=== PATIENT | female | born 1955 | race Caucasian/White ===

== ENCOUNTER 2022-09-25 08:17 | Outpatient (REF) | payer MEDICARE, SELFPAY | END 2022-09-25 08:18 | disposition home or self-care (01) | LOC: HO.SH 08:17 | PROVIDERS: Visit Provider Physician Assistant | DX: Z01.118 Encounter for examination of ears and hearing with other abnormal findings (principal); H90.3 Sensorineural hearing loss, bilateral | CPT/HCPCS: 92557 ==

== ENCOUNTER 2024-06-23 15:56 | Outpatient (AMB) | payer MEDICARE, OTHER, SELFPAY ==
--- NOTE | 2024-06-23 15:58 | AM.OFFWIN_ITS ---
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 Patient Tobacco Use Status: Never used Tobacco Allergies Sulfa (Sulfonamide Antibiotics) Adverse Reaction (Mild, Verified 06/23/24 16:01) Rash Do you need a note to return to daycare/school/sports/work: No HPI HPI Comments 2 History of Present Illness0 Details 68 y/o Female patient who [facility] with c/o left middle finger Nail infection x 1 week. She remembers clipping her nails before the Pain and redness started. She has been using OTC Topical Abx with minimal relief. [facility] Medical History (Updated 06/23/24 @ 16:20 by Precious Perera NP) Paronychia of finger Social History Patient Tobacco Use Status: Never used Tobacco Review of Systems Const All systems reviewed & are unremarkable except as noted in HPI and below Physical Exam Vital Signs: Last Vital Signs Temp 98.4 F 06/23/24 16:00 Pulse 69 06/23/24 16:00 BP 110/70 06/23/24 16:00 Pulse Ox 97 06/23/24 16:00 Oxygen Delivery Method Room Air 06/23/24 16:00 Const General: no acute distress Orientation/consciousness: patient oriented x3 Neuro General: patient oriented x3, gait normal and moves all extremities Extrem Right upper extremity: normal to inspection and full ROM Left upper extremity: hand Details: normal capillary refill, tenderness Location: of the 3rd digit Location: at the nailbed and involving the fingernail, normal ROM of fingers, warmth and swelling Hand/finger images: 2 1. Erythematous, swelling and TTP left middle finger - Hang Nail. Psych Speech and movement: Normal speech and movement present Assessment & Plan Assessment & Plan (1) Paronychia of finger: Code(s): L03.019 - Cellulitis of unspecified finger Qualifiers: Laterality: left Qualified Code(s): L03.012 - Cellulitis of left finger Plan: Ordered Keflex 500 mg BID for 5 days. Soak Finger in Warm water with Epsom salts. Saok 15-20 minutes, 3-4 times a day. Apply a thin layer of an [id number] antibiotic ointment (like Neosporin or triple antibiotic). Medications: New 2 cephalexin 500 mg PO BID 7 days 14 caps 0RF L03.012 - Cellulitis of left finger Coding Level of Care Code Est Pt Level 4 (92147) Diagnoses Paronychia of finger of left hand L03.012 Laterality: left Time Spent (min) 20
--- OUTSIDE RECORDS SUMMARY | 2024-06-23 15:58 | XMS_ITS | Clinical Summary ---
Author Organization [facility] Address [address] [place] [address] Care Team Providers Care Language Interpreter Name Role Phone Hannah Kemp Primary Care Provider [phone] Allergies Active Allergy Reactions Criticality Noted Date Comments Sulfa (Sulfonamide Antibiotics) Rash 06/04 Medications cholecalciferol (VITAMIN D3) 2,000 unit tablet Take 2,000 Units by mouth daily. Active citalopram (CeleXA) 40 mg tablet SMARTSI Tablet(s) By Mouth Daily Active dabigatran (PRADAXA) 150 mg capsule Take 150 mg by mouth 2 times daily. 01/03/2023 Active diltiazem CD (CARDIZEM CD) 360 mg 24 hr capsule SMARTSI Capsule(s) By Mouth Daily Active flecainide (TAMBOCOR) 50 mg tablet Take 50 mg by mouth 2 times daily. 11/08/2023 Active hydroCHLOROthiaz hilary (HYDRODIURIL) 25 mg tablet SMARTSI Tablet(s) By Mouth Daily 11/15/2023 Active hydrOXYzine HCL (ATARAX) 25 mg tablet SMARTSI- 4 Tablet(s) By Mouth Every Night PRN Active latanoprost (XALATAN) 0.005% ophthalmic solution Place 1 Drop into both eyes every morning. Active levothyroxine (SYNTHROID, LEVOTHROID) 150 mcg tablet Active LORazepam (ATIVAN) 0.5 mg tablet SMARTSI Tablet(s) By Mouth Daily PRN 10/12/2023 Active multivitamin (THERAGRAN) tablet Take 1 tablet by mouth daily. Active omeprazole 20 mg tablet,delayed release (DR/EC) Take 20 mg by mouth daily. Active Social History Tobacco Use Types Packs/Day Years Used Date Smoking Tobacco: Never Smokeless Tobacco: Never Tobacco Cessation:Counseling Given: Not Answered Alcohol Use Standard Drinks/Week Comments Not Currently 0 (1 standard drink = 0.6 oz pur e alcohol) Quit last year Comments Unknown Sex and Gender Information Value Date Recorded Sex Assigned at Female 12/26/2023 10:17 AM EDT Legal Sex Female 12:10 PM EDT Gender Identity Female 12/26/2023 10:17 AM EDT Sexual Orientation Straight 12/26/2023 10 :17 AM EDT Last Filed Vital Signs Vital Sign Reading Time Taken Comments Blood Pressure 116/78 01/02/2024 8:46 AM EDT Pulse 76 01/02/2024 8:46 AM EDT Temperature - - Respiratory Rate 16 01/02/2024 8:46 AM EDT Oxygen Saturation 97% 01/02/2024 8:46 AM EDT Inhaled Oxygen Concentration - - Weight 97 kg (213 lb 13.5 oz) 01/02/2024 8:46 AM EDT Height 154.9 cm (5' 1 ) 01/02/2024 8:46 AM EDT Body Mass Index 40.41 01/02/2024 8:46 AM EDT Plan of Treatment Health Maintenance Due Date Last Done Comments Cologuard 1953 Colon Cancer Screening 1955 Colonoscopy 1953 FOBT / Fit Test 1953 Hepatitis C Screening 1953 Sigmoidoscopy 1953 Medicare AWV 1954 Mammogram 1993 Osteoporosis Screening 10/01/2003 Zoster Vaccines (3 of 3) 12/07/2023 10/12/2023, 06/03 Alcohol/Substance Use Screening 03/05/2024 Depression Screening and Follow-Up 03/05/2024 Health Care Proxy Review 03/05/2024 Social Drivers of Health Annual Screening 03/05/2024 COVID-19 Vaccine ( season) 2024 11/21/2023, 12/04/2022, 12/12/2021, Additional history exists DTaP,Tdap,and Td Vaccines (3 - Td or Tdap) 05/15/2032 05/15/2022, 02/20/2012, 12/09/2001 Pneumococcal Vaccine: 50+ Years Completed 08/16/2020, 11/11/2018, 09/18/2015 RSV Vaccine (60+ years old and patients) Completed 01/31/2023 Influenza Vaccine Completed 11/21/2023, , 12/12/2021, Additional history exists Hepatitis B Vaccines Aged Out No long er eligible based on patient's age to complete this topic Insurance MEDICARE Care Teams Language Interpreter Relationship Specialty Start Date End Date Hannah Kemp [address] [place] [id number] PCP - General Family Medicine 10/29/23
--- OUTSIDE RECORDS SUMMARY | 2024-06-23 15:58 | XMS_ITS | Data Portability ---
Author Organization [facility] Pain Managem jeanmarie PAIN OFFICE Address [address] [facility] [address] [place] [address] Care Team Providers Care Manager Social Media Name Role Phone CORBIN RYDER Primary Care Provider Assessment Encounter Date Assessment Date Assessment LastModified by Organization Details LastModified Time 05/24/2023 05/24/2023 Marlen Morales is a 67? ? ?year old woman with low back pain, left sided. On exam ,she has tenderness in the left sacroiliac joint with a positive Karan's test. X-ray Lumbar spine shows mild degenerative changes in her sacroiliac joints. Mild degenerative change in her discs with facet arthropathy . She is here for a trial of left sacroiliac joint injection under fluoroscopic guidance . The risks and benefits of the procedure? ? ? were discussed in detail. She wishes to proceed. She is on Pradaxa. She can restart the medication tomorrow. She can follow up as needed. [email or web address] Not available 05/24/2023 15:15:57 09/25/2023 09/25/2023 Marlen Morales is a 67? ? ?year old woman with low back pain, left sided. On exam ,she has tenderness in the left sacroiliac joint with a positive Karan's test. X-ray Lumbar spine shows mild degenerative changes in her sacroiliac joints. Mild degenerative change in her discs with facet arthropathy . She is here for a trial of bilateral sacroiliac joint injections under fluoroscopic guidance . The risks and benefits of the procedure? ? ? were discussed in detail. She wishes to proceed. She is on Pradaxa. She can restart the medication tomorrow. She is having low back pain radiating into both buttock regions with weakness in her legs . She has had multiple falls. I will order a MRI Lumbar spine. I will call her with the results. [email or web address] Not available 09/25/2023 16:23:35 01/08/2024 01/08/2024 Marlen Morales is a 68? ? ?year old woman with low back pain radiating occasionally into the right lower extremity. On exam ,she has tenderness in the Right lower lumbar region with a positive facet loading test. X-ray Lumbar spine shows mild degenerative changes in her sacroiliac joints. Mild degenerative change in her discs with facet arthropathy . She is here for a trial of Right lumbar facet joint injection under fluoroscopic guidance . The risks and benefits of the procedure? ? ? were discussed in detail. She wishes to proceed. She is on Pradaxa. She can restart tomorrow. She will follow up as needed. [email or web address] Not available 01/08/2024 16:26:14 04/22/2024 04/22/2024 Marlen Morales is a 68? ? ?year old woman with low back pain radiating occasionally into the right lower extremity. On exam ,she has tenderness in the Right lower lumbar region with a positive facet loading test. X-ray Lumbar spine shows mild degenerative changes in her sacroiliac joints. Mild degenerative change in her discs with facet arthropathy . She is here for a trial of Right lumbar facet joint injection under fluoroscopic guidance . The risks and benefits of the procedure? ? ? were discussed in detail. She wishes to proceed. She is on eliquis. She can restart tomorrow. She will follow up in eight weeks. If she has good pain benefit. She is a candidate for RFA [email or web address] Not available 04/22/2024 11:41:53 06/23/2024 06/23/2024 Marlen Morales is a 68? ? ?year old woman with low back pain radiating occasionally into the right lower extremity. On exam ,she has tenderness in the Right lower lumbar region with a positive facet loading test. X-ray Lumbar spine shows mild degenerative changes in her sacroiliac joints. Mild degenerative change in her discs with facet arthropathy . I recommend a trial of Right radiofrequency ablation of right lumbar facet joints L4-5 and L5-S1 levels under fluoroscopic guidance . The risks and benefits of the procedure? ? ? were discussed in detail. She wishes to proceed. An appointment has been made. She is on eliquis. She was given instructions to stop it three days prior to the procedure. [email or web address] Not available 06/23/2024 09:59:48 Plan of Treatment Reminders Order Date Submit Date Provider Last Modified By Organization Details Last Modified Time Details Appointments RETURN 2024 09:00A M Sahara cerda MD Not available Not available Not available Lumbar Radiofreq uency 2024 01:00P M Sahara cerda MD Not available Not available Not available Lab None recorded. Referral None recorded. Procedures None recorded. Surgeries None recorded. Imaging MRI, lumbar spine, w/o contrast 2023 024 [facility] ([facility]), [address] [facility], [place], [address], 10/08/2023 12:51:59 Medication Orders None recorded. Patient TargetsNo targets recorded. Patient Instructions Encounter Date Encounter Id Patient Instructions Last Modified By Organization Details Last Modified Time 05/24/2023 [id number] She was advised against bed rest lasting longer than four days and to continue activities as tolerated. [email or web address] Not available 05/24/2023 15:15:15 09/25/2023 [id number] She was advised against bed rest lasting longer than four days and to continue activities as tolerated. [email or web address] Not available 09/25/2023 16:21:05 01/08/2024 [id number] She was advised against bed rest lasting longer than four days and to continue activities as tolerated. [email or web address] Not available 01/08/2024 16:24:45 04/22/2024 [id number] She was advised against bed rest lasting longer than four days and to continue activities as tolerated. [email or web address] Not available 04/22/2024 11:38:42 06/23/2024 [id number] She was advised against bed rest lasting longer than four days and to continue activities as tolerated. [email or web address] Not available 06/23/2024 09:58:03 Reason for Referral None Reported. Results Created Date Observation Date Name Description Value Unit Range Abnormal Flag Note LastModifiedBy Organization Detail LastModifiedTime 10/08/192024 MRI, lumba r spine , w/o contr ast [facility] [place] [facility] Access ion Number : [id number] Jannet goode Name: Jada Morales Record Number : [id number] Date of : 1955 Date of Exam: 2023 Referr ing Physic venkatesh: Aaliyah tylern, [facility] [address] [place] [address] Exam: MR Lumbar Spine (C-) CPT 41330 Room Descri ption: Mckinney GE Pion 3T MR Lumbar Spine (C-) CPT 86733 INDICA TION: Radicu lopath y, lumbar region Radicu lopath y, lumbar region TECHNI QUE: MRI of the lumbar spine was perfor med withou t intrav enous contra st utiliz ing 3-D sagitt al T2 CUBE with axial reform ats, sagitt al T1, and sagitt al STIR sequen carlos. COMPAR BRADLEY: None. FINDIN GS: NUMBER ING: The study assume s 5 non-ri b-bear ing lumbar type verteb ral bodies . ALIGNM ENT, VERTEB LUIS MANUEL, MARROW , AND DISCS: There is subtle retrol isthes is of L2 on L3 and L3 on L4 and subtle grade 1 flory listhe sis of L4 on L5. Alignm ent is otherw ise mainta ined. Verteb ral body height s are preser junior. There are Modic type II signal change s at the L5-S1 level. There are combin ed Modic type I and type II signal change s at L2-L3. There is diffus e disc desicc ation with mild multil evel loss of interv ertebr al disc height which is most promin ent at L2-L3. CONUS: The conus is normal in signal and contou r, with normal level of termin ation at L1-L2. PARASP INAL TISSUE S: Atroph y of the instructor extension work ior parasp inal muscul ature. A left renal cyst is noted on the locali zer images . DETAIL ED FINDIN GS BY LEVEL: T12-L1 : No signif icant canal stenos is or neural forami nal narrow ing. L1-L2: No signif icant canal stenos is or neural forami nal narrow ing. L2-L3: Minima l disc bulge with a small right parace ntral protru gloria and annula r fissur e. Mild right- sided spinal canal narrow ing. Minima l left and mild right neural forami nal narrow ing. L3-L4: Disc bulge, ligame ntum flavum thicke rome, and facet arthro noah. Minima l spinal canal narrow ing. Minima l bilate ral neural forami nal narrow ing. L4-L5: Diffus e disc bulge and facet arthro noah. No signif icant canal stenos is. Minima l bilate ral neural forami nal narrow ing. L5-S1: Facet arthro noah, left greate r than right. Minima l disc bulge. No signif icant canal stenos is. Mild left and minima l right neural forami nal narrow ing. IMPRES GLORIA: Multil evel degene rative change s of the lumbar spine as above. No defini te eviden ce for nerve root imping ement. Electr onical ly Signed By: Nena angeles MD [facility] ([facility]) [address] [place], [address], 10/08/2023 16:23:07 Result Notes None recorded. Problems Name Problem SNOMED Code Status Onset Date Resolution Date Notes Provider Name and Address Organization Details Recorded Time Lumbar radiculopathy 175086314 Active Mikayla cooper, [place] - [facility] 3 11:06:07 Inflammation of sacroiliac joint 64211599 Active Sahara cerda MD [address] [facility] , [facility] [address], [place], [address], [facility] - Pain Management 3 11:33:40 Problem Notes None recorded. Procedures Surgical History Date Name Laterality Status Provider Name and Address Organization Details Recorded Time 025 Fluoroscopic Guided Lumbar Facet Steroid Injections of levels completed Sahara Major MD [address] [facility] [address], [place], [address], [facility] - Pain Management 04/22/2024 11:40:57 024 Fluoroscopic Guided Lumbar Facet Steroid Injections of levels completed Sahara Major MD [address] , [address], [place], [address], [place] - [facility] 01/08/2024 16:24:11 024 Sacroiliac Joint Steroid Injections, using Fluoroscopy completed Sahara Major MD [address] , [address], [place], [address], [place] - [facility] 09/25/2023 16:22:02 024 Sacroiliac Joint Steroid Injections, using Fluoroscopy completed Sahara Major MD [address] , [address], [place], [address], [place] - [facility] 05/24/2023 15:14:07 024 Sacroiliac Joint Steroid Injections, using Fluoroscopy completed Sahara Major MD [address] , [address], [place], [address], [place] - [facility] 04/18/2023 10:42:30 repair of musculotendinous cuff of shoulder completed Mikayla Montejo [place] - [facility] 02/22/2023 11:13:03 Knee Surgery completed Mikayla Montejo [place] - [facility] 02/22/2023 11:13:19 Breast reduction completed Mikayla Montejo [place] - [facility] 02/22/2023 11:13:34 Imaging Results Imaging Date Name Status LastModified by Organiz ation Details LastModified Time 10/05/2023 MRI, lumbar spine, w/o contrast completed [facility] ([facility]) [address] [place], [address], 10/08/2023 16:23:07 Procedure Notes None recorded. Medical Equipment None Reported. Allergies Allergen ID Allergen Name Allergen Category Reaction Reaction Severity Criticality Documentation Date Start Date Code Code System Note Provider Name and Address Organization Details Recorded Time Substance with sulfonami de structure and antibacte rial mechanism of action (substanc e) medicatio n rash mild unabletoasse ss 02/22/2023 57018 0623 SNOMED Mikayla Pellegrin o null, [place] - [facility] 10:47:30 Medications Name Sig Start Date Stop Date Status Note LastModified by Organization Details LastModified Time cyclobenzap rine 10 mg tablet TAKE 1 TABLET BY MOUTH THREE TIMES A DAY 02/22 completed Not Available Not Available Not Available latanoprost 0.005 % eye drops LOCATION: BOTH EYES. ONE DROP IN BOTH EYES AT BEDTIME active Not Available Not Available No t Available levothyroxi ne 137 mcg tablet TAKE 1 TABLET BY MOUTH EVERY DAY 06/23 completed Not Available Not Available Not Available citalopram 40 mg tablet TAKE 1 TABLET BY MOUTH EVERY DAY active Not Available Not Available No t Available diltiazem CD 240 mg capsule,ext ended release 24 hr TAKE 1 CAPSULE BY MOUTH EVERY DAY 02/22 completed Not Available Not Available Not Available prednisone 20 mg tablet TAKE 2 TABLETS BY MOUTH EVERY DAY FOR 5 DAYS 12/30 completed Not Available Not Available Not Available diltiazem CD 360 mg capsule,ext ended release 24 hr TAKE 1 CAPSULE BY MOUTH EVERY DAY active Not Available Not Available No t Available hydroxyzine HCl 50 mg tablet TAKE 1-2 TABS AT BEDTIME NEEDED FOR INSOMNIA. MAX 100MG/DOS E. active Not Available Not Available No t Available triamcinolo ne acetonide 0.1 % topical cream APPLY THIN COAT TO AFFECTED AREA TWICE A DAY active Not Available Not Available No t Available clobetasol 0.05 % topical gel APPLY TO AFFECTED AREA TWICE A DAY active Not Available Not Available No t Available lorazepam 0.5 mg tablet TAKE 1 TABLET EVERY DAY BY ORAL ROUTE NEEDED. active Not Available Not Available No t Available benzonatate 100 mg capsule TAKE 1 CAPSULE BY MOUTH 3 TIMES A DAY FOR 7 DAYS NEEDED FOR COUGH AND CONGESTIO N 06/23 completed Not Available Not Available Not Available oseltamivir 75 mg capsule TAKE 1 CAPSULE BY MOUTH 2 TIMES A DAY FOR 4 DAYS 06/23 completed Not Available Not Available Not Available levothyroxi ne 125 mcg tablet TAKE 1 TABLET BY MOUTH EVERY DAY 02/22 completed Not Available Not Available Not Available levothyroxi ne 150 mcg tablet TAKE 1 TABLET BY MOUTH EVERY DAY active Not Available Not Available No t Available flecainide 50 mg tablet TAKE 1 TABLET BY MOUTH TWICE A DAY active Not Available Not Available No t Available gabapentin 300 mg capsule TAKE 1 TO 3 CAPS BY MOUTH EVERY DAY AT BEDTIME active Not Available Not Available No t Available omeprazole 20 mg capsule,del ayed release TAKE 1 CAPSULE BY MOUTH EVERY DAY IN THE MORNING 30 MINUTES BEFORE BREAKFAST active Not Available Not Available No t Available hydroxyzine HCl 25 mg tablet TAKE 1 TO 4 TABLETS BY MOUTH AT BEDTIME NEEDED FOR INSOMNIA. 06/23 completed Not Available Not Available Not Available hydrochloro thiazide 25 mg tablet TAKE 1 TABLET BY MOUTH EVERY DAY active Not Available Not Available No t Available methylpredn isolone 4 mg tablets in a dose pack TAKE DIRECTED PER PACKAGE FOR 6 DAYS 02/22 completed Not Available Not Available Not Available albuterol sulfate HFA 90 mcg/actuati on aerosol inhaler INHALE 2 PUFFS EVERY 4 HOURS NEEDED FOR WHEEZING/ SHORTNESS OF BREATH active Not Available Not Available No t Available diltiazem 30 mg tablet TAKE 1 TABLET BY MOUTH DAILY NEEDED FOR OTHER (TACHYCAR CHAMP). active Not Available Not Available No t Available naproxen 500 mg tablet TAKE 1 TABLET BY MOUTH TWICE A DAY FOR 5 DAYS BEGINNING THE AFTERNOON /EVENING YOU GET HOME FROM SURGERY. TAKE WITH FOOD, STOP IF STOMACH DISCOMFOR T. 02/22 completed Not Available Not Available Not Available oxycodone 5 mg tablet TAKE 1-2 TABLETS BY MOUTH EVERY 6 HOURS NEEDED FOR 3 DAYS. 06/23 completed Not Available Not Available Not Available chlorhexidi ne gluconate 0.12 % mouthwash USE 15 ML IN THE MOUTH OR THROAT DIRECTED TWICE A DAY active Not Available Not Available No t Available Pradaxa 150 mg capsule TAKE 1 CAPSULE BY MOUTH TWICE A DAY 04/22 completed Not Available Not Available Not Available Xarelto 20 mg tablet TAKE 1 TABLET BY MOUTH EVERY DAY 04/18 completed Not Available Not Available Not Available Eliquis 5 mg tablet TAKE 1 TABLET BY MOUTH TWICE A DAY active Not Available Not Available No t Available Zepbound 5 mg/0.5 mL subcutaneou s pen injector INJECT 5 MG SUBCUTANE OUSLY WEEKLY FOR 28 DAYS active Not Available Not Available No t Available Zepbound 2.5 mg/0.5 mL subcutaneou s pen injector INJECT 1 PEN (2.5 MG) SUBCUTANE OUSLY ONCE WEEKLY FOR 28 DAYS 06/23 completed Not Available Not Available Not Available Vitals Date Recorded Body height Heart rate Oxygen saturation Oxygen saturation in Arterial blood by Pulse oximetry Pain severity - 0-10 verbal numeric rating [Score] - Reported Systolic blood pressure Diastolic blood pressure Provider Name and Address Organization Details Last Updated DateTime 4 154.94 cm 61 /min 96 % 96 % 3 130 mm[Hg] 73 mm[Hg] Paola Bernard PA - [facility] 4 08:36:59 Date Recorded Body height Heart rate Oxygen saturation Oxygen saturation in Arterial blood by Pulse oximetry Systolic blood pressure Diastolic blood pressure Provider Name and Address Organization Details Last Updated DateTime 4 154.94 cm 67 /min 98 % 98 % 127 mm[Hg] 71 mm[Hg] Isa Lowe [place] - [facility] 4 10:04:51 Date Recorded Body height Heart rate Oxygen saturation Oxygen saturation in Arterial blood by Pulse oximetry Systolic blood pressure Diastolic blood pressure Provider Name and Address Organization Details Last Updated DateTime 4 154.94 cm 73 /min 96 % 96 % 132 mm[Hg] 75 mm[Hg] Isa Lowe PA - [facility] 4 09:51:27 Date Recorded Body height Heart rate Oxygen saturation Oxygen saturation in Arterial blood by Pulse oximetry Systolic blood pressure Diastolic blood pressure Provider Name and Address Organization Details Last Updated DateTime 5 154.94 cm 68 /min 96 % 96 % 127 mm[Hg] 61 mm[Hg] Isa Lowe PA - Pain [facility] 5 10:43:52 Date Recorded Body height Heart rate Oxygen saturation Oxygen saturation in Arterial blood by Pulse oximetry Pain severity - 0-10 verbal numeric rating [Score] - Reported Body mass index (BMI) Body weight Systolic blood pressure Diastolic blood pressure Provider Name and Address Organization Details Last Updated DateTime 5 154.94 cm 65 /min 95 % 95 % 5 38.9 kg/m2 61335.0 3 g 124 mm[Hg] 67 mm[Hg] Sahara cerda MD [address] [facility] , [address], [place], [address], [place] - [facility] 5 09:01:13 Social History Question Answer Notes LastModified by Organizat ion Details LastModified Time Tobacco Smoking Status Never Smoker Mikayla cooper, [place] - [facility] 02/22/2023 11:08:52 What Is Your Level Of Alcohol Consumption? None Information not available 02/22/2023 Are You Blind Or Do You Have Difficulty Seeing? 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 Campbell Flores Information not available 02/22/2023 Are You Currently Employed? No Retired [employer] Information not available 02/22/2023 Are You Deaf Or Do You Have Serious Difficulty Hearing? Yes Hearing Aids Both Ears Information not available 02/22/2023 What Is The Highest Grade Or Level Of School You Have Completed Or The Highest Degree You Have Received? 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 Information not available 02/22/2023 Do You Use Any Illicit Or Recreational Drugs? No Information not available 02/22/2023 Sex: Unknown Functional Status Question Answer Note LastModified by Organization D etails LastModified Time Do you have difficulty walking or climbing stairs? Yes Information not available 02/22/2023 Do you have difficulty doing errands alone? No Information not available 02/22/2023 Do you have difficulty dressing or bathing? No Information not available 02/22/2023 Mental Status Question Answer Note LastModified by Organization D etails LastModified Time Do you have difficulty concentrating, remembering or making decisions? Yes Information no t available 02/22/2023 Family History Relationship Description Onset Age of this Age Resolved Age Notes LastModified by Organization Details LastModified Time Mother Diabetes mellitus Not available 11:07:36 Brother Diabetes mellitus Not available 11:07:36 Sister Diabetes mellitus Not available 11:07:44 Father Malignant tumor of colon Not available 11:08:07 Father Malignant tumor of larynx Not available 11:08:32 Medical History Condition Response Liver Disease Y Arthritis Y Hypothyroidism Y GERD/Reflux Y Gynecological HistoryNo gynecological history recorded. Obstetrics History GPAL:G 0 P 0 0 0 0 Immunizations Vaccine Type Date Status Note Provider Nam e and Address Organization Details Recorded Time COVID-19, mRNA, LNP-S, bivalent, PF, 50 mcg/0.5 mL or 25mcg/0.25 mL dose 01/25/2023 completed Mikayla Montejo null, [place] - [facility] 02/22/2023 10:55:14 Respiratory syncytial virus (RSV) vaccine, unspecified 01/25/2023 completed Mikayla Montejo null, [place] - [facility] 02/22/2023 10:55:50 influenza, unspecified formulation 01/25/2023 completed Mikayla cooper, [place] - [facility] 02/22/2023 10:56:13 Past Encounters Encounter ID Performer Location Encounter Start Date Encounter Closed Date Diagnosis/Indication Diagnosis SNOMED-CT Code Diagnosis ICD10 Code Diagnosis Note [id number] Sahara Major MD PAIN OFFICE [address] [place] [address] 02/22/2023 10:24:36 02/23/2023 11:25:04 Inflammation of sacroiliac joint 13069110 M46.1 Lumbosacra l spondylosis without myelopathy 02662022 M47.817 Degenerati on of lumbar intervertebral disc 18962191 M51.36 [id number] Sahara Major MD PAIN OFFICE [address] [place] [address] 04/18/2023 09:40:53 04/18/2023 15:33:31 Inflammation of sacroiliac joint 58972864 M46.1 Lumbosacra l spondylosis without myelopathy 74614577 M47.817 Degenerati on of lumbar intervertebral disc 56973629 M51.36 [id number] Sahara Major MD PAIN OFFICE [address] [place] [address] 05/18/2023 10:39:46 05/18/2023 11:23:51 Inflammation of sacroiliac joint 31173755 M46.1 Lumbar radiculopathy 128 039462 M54.16 Lumbosacra l spondylosis without myelopathy 27367532 M47.817 Degenerati on of lumbar intervertebral disc 18795719 M51.36 [id number] Sahara Major MD [facility] [address] [place] [address] 05/24/2023 08:21:44 05/24/2023 15:21:49 Inflammation of sacroiliac joint 60450448 M46.1 Lumbar radiculopathy 128 352110 M54.16 Lumbosacra l spondylosis without myelopathy 43142476 M47.817 Degenerati on of lumbar intervertebral disc 07665116 M51.36 [id number] Sahara Major MD PAIN OFFICE [address] [place] [address] 09/25/2023 09:55:55 09/25/2023 16:37:43 Inflammation of sacroiliac joint 50714977 M46.1 Lumbar radiculopathy 128 M54.16 Lumbosacra l spondylosis without myelopathy 21280434 M47.817 Degenerati on of lumbar intervertebral disc 10010868 M51.36 [id number] Sahara Major MD PAIN OFFICE [address] [place] [address] 01/08/2024 09:46:01 01/08/2024 16:32:13 Lumbosacral spondylosis without myelopathy 20296066 M47.817 Degenerati on of lumbar intervertebral disc 70012642 M51.362 [id number] Sahara Major MD PAIN OFFICE [address] [place] [address] 04/22/2024 10:38:54 04/22/2024 16:27:25 Lumbosacral spondylosis without myelopathy 58028480 M47.817 Degenerati on of lumbar intervertebral disc 50711609 M51.362 [id number] Sahara Major MD [facility] [address] [place] [address] 06/23/2024 08:55:50 06/23/2024 10:39:21 Lumbosacral spondylosis without myelopathy 53235999 M47.817 Degenerati on of lumbar intervertebral disc 02595776 M51.360 Health Concerns Section Related Observation LastModified by Organization Detai ls LastModified Time None Recorded Concern Status LastModified by Organization Details LastModified Time None Recorded Advance Directives Directive None Recorded Payers Encounter Date Sequence Insurance Name Policy Number Policy [place] Covered Member ID [place] Member ID Guarantor Name 05/24/2023 2 [employer] (MEDICARE SUPPLEMENT) Marlen Morales [id number] Marlen Morales 05/24/2023 1 [place] [facility] Marlen Morales [id number] Marlen Morales 09/25/2023 2 [employer] (MEDICARE SUPPLEMENT) Marlen Morales [id number] Marlen Morales 09/25/2023 1 [place] [facility] Marlen Morales [id number] Marlen Morales 01/08/2024 2 [employer] (MEDICARE SUPPLEMENT) Marlen Morales [id number] Marlen Morales 01/08/2024 1 [place] [facility] Marlen Morales [id number] 5 Marlen Morales 04/22/2024 2 [employer] (MEDICARE SUPPLEMENT) Marlen Morales [id number] Marlen Morales 04/22/2024 1 [place] [facility] Marlen Morales [id number] Marlen Morales 06/23/2024 2 [employer] (MEDICARE SUPPLEMENT) Marlen Morales [id number] Marlen Morales 06/23/2024 1 [place] [facility] Marlen Morales [id number] 5 Marlen Morales Notes Date Note Type Note Provider Name and Address Organization Details Recorded Time 05/24/2023 text/html She is here for a left sacroiliac joint injection under fluoroscopic guidance Sahara Major MD [address] , [address], [place], [address], [place] [facility] 05/24/2023 15:22:47 09/25/2023 text/html She is here for a bilateral sacroiliac joint injection under fluoroscopic guidance Sahara Major MD [address] , [address], [place], [address], [place] [facility] 09/26/2023 08:54:39 01/08/2024 text/html She is here for a right lumbar facet joint injection under fluoroscopic guidance. She has been off pradaxa for more than five days due to a MOH's procedure on her scalp for basal cell carcinoma. Sahara Major MD [address] , [address], [place], [address], [place] [facility] 01/09/2024 15:46:29 04/22/2024 text/html She is here for a right lumbar facet joint injection under fluoroscopic guidance. She has been off Eliquis preprocedure. She has switched from pradaxa to eliquis due to cost. She reports 4 weeks of 80% pain relief with last injection with a slow return of pain. Sahara Major MD [address] , [address], [place], [address], [facility] - [facility] Management 04/22/2024 16:32:45 06/23/2024 text/html She is here for a follow up . She has had two right sided lumbar facet joint injections at L4-5 and L5-S1 levels on 01/08/24 and 04/22/24 . She reports 80% pain benefit with the injections for the first week and then 50% pain relief for 6 weeks. She is looking for a computer terminal operator option for her pain relief. She has no radiating pain in her legs. She has no history of bladder or bowel incontinence. Sahara Major MD [address] [facility] , [address], [place], [address], [facility] - Pain Management 06/23/2024 10:43:02 OBGyn Episode No OBEpisode recorded.
--- OUTSIDE RECORDS SUMMARY | 2024-06-23 15:58 | XMS_ITS | Encounter Summary ---
Author Organization [facility] Address [address] [place] [address] Care Team Providers Care Coat Examiner Name Role Phone Evette Oscar Primary Care Provider [phone] Reason for Visit * Reason Onset Date Comments Procedure 06/18/2024 PFA Afib Ablatio n 6.2.25 Encounter Details Date Type Department Care Team (Late st Contact Info) Description 06/18/2024 Telephone [facility] Cardiology [facility] [address] [place] [id number] Elba Freire MD [address] [place] [address] Procedure (PFA Afib Ablation 6.2.25) Social History Tobacco Use Types Packs/Day Years Used Date Smoking Tobacco: Never Smokeless Tobacco: Never Alcohol Use Standard Drinks/Week Comments Not Currently 0 (1 standard drink = 0.6 oz pur e alcohol) Comments Unknown Sex and Gender Information Value Date Recorded Sex Assigned at Not on file Legal Sex Female 2:46 AM EST Gender Identity Not on file Sexual Orientation Not on file documented as of this encounter Plan of Treatment Upcoming Encounters Date Type Department Care Team (Late st Contact Info) Description 11/05/2024 8:50 AM EDT Office Visit [facility] Cardiology [address] [place] [address] Ricco Sim MD [address] [place] [address] [address] [place] [address] documented as of this encounter Visit Diagnoses Not on filedocumented in this encounter Care Teams Coat Examiner Relationship Specialty Start Date End Date Evette Oscar PA [address] [place] [id number] PCP - General 06/03/24 documented as of this encounter
--- OUTSIDE RECORDS SUMMARY | 2024-06-23 15:58 | XMS_ITS | Referral Summary ---
Author Organization [facility] Address [address] [place] [address] Care Team Providers Care Observer Helper Name Role Phone Hannah Kemp Primary Care Provider [phone] Allergies Active Allergy Reactions Criticality Noted Date [...] 01/02/2024 8:46 AM EDT Plan of Treatment Not on file Insurance [facility] MEDICARE Care Teams Observer Helper Relationship Specialty Start Date End Date Hannah Kemp [address] [place] [id number] PCP - General Family Medicine 10/29/23
--- OUTSIDE RECORDS SUMMARY | 2024-06-23 15:59 | XMS_ITS | Data Portability ---
Author Organization [facility], [facility] [place] Address [address] [place] [address] Care Team Providers Care [employer] Psychometrist Name Role Phone CORBIN HUNTLEY Referring Provider [phone] CORBIN RYDER Primary Care Provider [phone] Assessment Encounter Date Assessment Date Assessment LastModified by Organization Details LastModified Time 06/04/2024 06/04/2024 Assessment: Excellent ROM today. Some weakness in quad and hips. Good safe mechanics on stairs but with some antalgia with gait on level Plan: Continue PT @ 2x/wk to decrease pain, optimize motion, increase strength, and foster independence with functional ADL's. [email or web address] Not available 06/04/2024 12:35:18 06/09/2024 06/09/2024 Assessment: Good overall ROM, mild posterior chain tightness inhibiting full functional TKE. Ongoing weakness in hip and quad especially noted with desc stairs. Mild antalgia without AD Plan: Continue PT @ 2x/wk to decrease pain, optimize motion, increase strength, and foster independence with functional ADL's. [email or web address] Not available 06/09/2024 10:31:22 06/11/2024 06/11/2024 Assessment: Good overall ROM, mild posterior chain tightness inhibiting full functional TKE. Mild antalgia with gait on level surfaces. Slowly improving functional strength Plan: Continue PT @ 2x/wk to decrease pain, optimize motion, increase strength, and foster independence with functional ADL's. [email or web address] Not available 06/11/2024 12:36:54 06/16/2024 06/16/2024 Assessment: Progressing nicely with ROM and strengthening, but is challenged with balance and proprioception exercises. Plan: Continue PT @ 1x/wk to decrease pain, optimize motion, increase strength, and foster independence with functional ADL's. [email or web address] Not available 06/17/2024 21:51:49 Plan of Treatment Reminders Order Date Submit Date Provider Last Modified By Organization Details Last Modified Time Details Appointments PT FOLLOW-U P 2024 11:45A M Jodie Long, DOCTOR OF AUDIOLOGY Not available Not available Not available PT FOLLOW-U P 2024 02:30P Khai Long, DOCTOR OF AUDIOLOGY Not available Not available Not available RECHECK 15 2024 09:00A M Antoinette Antony, ROOF BOLTER Not available Not available Not available Lab None recorded . Referral None recorded . Procedures None recorded . Surgeries None recorded . Imaging None recorded . Medication Orders None recorded . Patient TargetsNo targets recorded. Patient InstructionsNo instructions recorded. Reason for Referral None Reported. Results Created Date Observation Date Name Description Value Unit Range Abnormal Flag Note LastModifiedBy Organization Detail LastModifiedTime 05/16/1905/15/2024 US, niles x, phillip s, lower extre mity No observ ation record ed. [email or web address] [facility] [address] [address], [place], [address], 05/16/2024 15:40:09 Result Notes None recorded. Problems Name Problem SNOMED Code Status Onset Date Resolution Date Notes Provider Name and Address Organization Details Recorded Time Tear of medial meniscus of right knee joint Active 2024 MATTHEW cooper [place] - [facility] 5 09:51:05 Closed fracture of triquetra l bone of left wrist 888193430663 13242 Active 2018 Problem Code: S62.112A ; Problem Code Type: ICD-10; Status: 'A'; Not Available [facility] 4 11:29:44 Osteoarth ritis of left knee joint 674454971421 109 Active 2023 Virgie Dillard PA-C [address], [place], [address] , [facility] - [facility] 4 16:37:45 Problem Notes None recorded. Procedures Surgical History Date Name Laterality Status Provider Name and Address Organization Details Recorded Time 06/17/19 29201 Therapeutic Exercise (1:1) completed Stephany Olivera DPT [address], [place], [address], [facility] 06/16/2024 16:28:24 06/17/19 30964: Neuromuscular Re-Education completed DIYA AsifT [address], [place], [address], [facility] 06/16/2024 18:24:28 06/17/19 80212: Manual therapy completed Stephany Olivera DPT [address], [place], [address], [facility] 06/16/2024 16:28:24 06/12/19 68622: Therapeutic Activities (1:1) completed Jodie Long PTA [address], [place], [address], [facility] 06/10/2024 14:15:18 06/12/19 35357 Therapeutic Exercise (1:1) completed Jodie Long PTA [address], [place], [address], [facility] 06/10/2024 14:15:18 06/12/19 96932: Manual therapy completed Jodie Long PTA [address], [place], [address], [facility] 06/10/2024 14:15:18 06/10/19 21505: Therapeutic Activities (1:1) completed Jodie Long PTA [address], [place], [address], [facility] 06/09/2024 10:30:14 06/10/19 14129 Therapeutic Exercise (1:1) completed Jodie Long PTA [address], [place], [address], [facility] 06/09/2024 10:30:08 06/10/19 25 16699: Manual therapy completed Jodie Long, DOCTOR OF AUDIOLOGY [address], [place], [address], [facility] 06/05/2024 12:46:50 06/10/19 Knee Kenalog 1cc L/R completed Antoinette Antony, ROOF BOLTER [address], [place], [address], [facility] 06/09/2024 09:22:19 06/05/19 25 02386: Therapeutic Activities (1:1) completed Jodie Long DOCTOR OF AUDIOLOGY [address], [place], [address], [facility] 06/04/2024 12:30:56 06/05/19 24916 Therapeutic Exercise (1:1) completed Jodie Long DOCTOR OF AUDIOLOGY [address], [place], [address], [facility] 06/03/2024 18:30:26 06/05/19 25 33197: Manual therapy completed Jodie Long DOCTOR OF AUDIOLOGY [address], [place], [address], [facility] 06/03/2024 18:30:26 06/03/19 85746 Therapeutic Exercise (1:1) completed DIYA AsifT [address], [place], [address], [facility] 06/02/2024 17:53:10 06/03/19 25 95599: Manual therapy completed Stephany Olivera DPT [address], [place], [address], [facility] 06/02/2024 17:53:20 05/29/19 25 00783 Therapeutic Exercise (1:1) completed Stephany Olivera DPT [address], [place], [address], [facility] 05/28/2024 13:12:36 05/29/19 30438: Low complexity PT Eval completed Stephany Cheston, DPT [address], [place], [address], [facility] 05/28/2024 13:12:38 05/29/19 25 G8417 BMI Above Upper Parameters, F/U Documented completed Stephany Olivera, DPT [address], [place], [address], [facility] 05/27/2024 13:18:56 05/29/19 25 G8427 Current Medication Documented completed Stephany Olivera, DPT [address], [place], [address], [facility] 05/27/2024 13:18:58 03/10/19 25 Knee Kenalog 40 2cc Injection, Bilateral completed Antoinette Antony, ROOF BOLTER [address], [place], [address], [facility] 03/10/2024 09:50:17 10/08/19 24 Sports Knee 4&1 completed Antoinette Antony, ROOF BOLTER [address], [place], [address], [facility] 10/08/2023 11:57:13 05/16/19 24 Sports Knee Aspiration completed Virgie Dillard PA-C [address], [place], [address], [facility] 05/16/2023 16:36:19 operation on meniscus of the knee completed TYRESE DOMINGUEZ [facility] 05/16/2023 14:19:55 Breast reduction completed TYRESE DOMINGUEZ [facility] 05/16/2023 14:20:33 Imaging Results Imaging Date Name Status LastModified by Organiz ation Details LastModified Time 05/15/2024 US, duplex, venous, lower extremity completed [email or web address] [facility] [address] [address], [place], [address], 05/16/2024 15:40:09 Procedure Notes None recorded. Medical Equipment None Reported. Allergies Allergen ID Allergen Name Allergen Category Reaction Reaction Severity Criticality Documentation Date Start Date Code Code System Note Provider Name and Address Organization Details Recorded Time 44386 Substance with sulfonami de structure and antibacte rial mechanism of action (substanc e) medicatio n Not available Not available Not available 05/07/20232022 98512 8003 SNOMED Not Available [facility] 4 12:57:41 Medications Name Sig Start Date Stop Date Status Note LastModified by Organization Details LastModified Time cyclobenzap rine 10 mg tablet TAKE 1 TABLET BY MOUTH THREE TIMES A DAY active Not Available Not Available No t Available latanoprost 0.005 % eye drops LOCATION: BOTH EYES. ONE DROP IN BOTH EYES AT BEDTIME active Not Available Not Available No t Available levothyroxi ne 137 mcg tablet TAKE 1 TABLET BY MOUTH EVERY DAY active Not Available Not Available No t Available citalopram 40 mg tablet TAKE 1 TABLET BY MOUTH EVERY DAY active Not Available Not Available No t Available diltiazem CD 240 mg capsule,ext ended release 24 hr TAKE 1 CAPSULE BY MOUTH EVERY DAY active Not Available Not Available No t Available prednisone 20 mg tablet TAKE 2 TABLETS BY MOUTH EVERY DAY FOR 5 DAYS active Not Available Not Available No t Available diltiazem CD 360 mg capsule,ext ended [...] DAYS NEEDED FOR COUGH AND CONGESTIO N active Not Available Not Available No t Available triamcinolo ne acetonide 40 mg/mL suspension for injection Take 1 mg by injection route. 2023 active Not Available Not Available Not Avai lable oseltamivir 75 mg capsule TAKE 1 CAPSULE BY MOUTH 2 TIMES A DAY FOR 4 DAYS active Not Available Not Available No t Available pseudoephed rine-guaife nesin ER 80-700 mg tablet,exte nded release DO NOT DRIVE WHILE TAKING THIS MEDICATIO N 08/25 completed Statu s: 'Disc ontin ued'; Not Available Not Available Not Available levothyroxi ne 125 mcg tablet TAKE 1 TABLET BY MOUTH EVERY DAY active Not Available Not Available No t Available levothyroxi ne 150 mcg tablet TAKE [...] BY MOUTH AT BEDTIME NEEDED FOR INSOMNIA. active Not Available Not Available No t Available hydrochloro thiazide 25 mg tablet TAKE 1 TABLET BY MOUTH EVERY DAY active Not Available Not Available No t Available methylpredn isolone 4 mg tablets in a dose pack TAKE DIRECTED PER PACKAGE FOR 6 DAYS active Not Available Not Available No t Available albuterol sulfate HFA 90 mcg/actuati on [...] WITH FOOD, STOP IF STOMACH DISCOMFOR T. active Not Available Not Available No t Available oxycodone 5 mg tablet TAKE 1-2 TABLETS BY MOUTH EVERY 6 HOURS NEEDED FOR 3 DAYS. active Not Available Not Available No t Available chlorhexidi ne gluconate 0.12 % mouthwash USE 15 ML IN THE MOUTH OR THROAT DIRECTED TWICE A DAY 05/15 completed Not Available Not Available Not Available diltiazem HCl dilTIAZem HCl 30MG Tablet 2022 active Statu s: 'Curr ent'; Not Available Not Available Not Available oxycodone HCl-oxycodo ne-ASA Take 1 tablet up to four times a day as needed for severe pain 06/13 completed Statu s: 'Disc ontin ued'; Not Available Not Available Not Available Pradaxa 150 mg capsule TAKE 1 CAPSULE BY MOUTH TWICE A DAY active Not Available Not Available No t Available Xarelto 20 mg tablet TAKE 1 TABLET BY MOUTH EVERY DAY active Not Available Not Available No t Available Eliquis 5 mg tablet TAKE 1 [...] SUBCUTANE OUSLY ONCE WEEKLY FOR 28 DAYS active Not Available Not Available No t Available Vitals Date Recorded Body height Body mass index (BMI) Body weight Provider Name and Address Organization Details Last Updated DateTime 06/09/2024 154.94 cm 38.7 kg/m2 81592.44 g COURTNEY GORDON [place] - [facility] 06/09/2024 09:09:43 Social History None recorded. Functional Status None recorded. Mental Status None recorded. Family History Relationship Description Onset Age of this Age Resolved Age Notes LastModified by Organization Details LastModified Time Father Family history of malignant neoplasm [email or web address] Not available 2023 14:18:29 Mother Cerebrovascu lar accident [email or web address] Not available 14:18:47 Unspecified Relation Diabetes mellitus [email or web address] Not available 2023 14:19:06 Medical History Condition Response Heart Trouble Y Thyroid Problems Y Hypertension Y Sleep Apnea Y Gynecological HistoryNo gynecological history recorded. Obstetrics History GPAL:G 0 P 0 0 0 0 Past Encounters Encounter ID Performer Location Encounter Start Date Encounter Closed Date Diagnosis/Indication Diagnosis SNOMED-CT Code Diagnosis ICD10 Code Diagnosis Note [id number] EDITH [facility] [address] [place] [address] 05/16/2023 13:47:59 06/05/2023 08:39:01 Osteoarthritis of left knee joint 8856361616 27209 M17.12 [id number] Antoinette Michaudjessica, ROOF BOLTER [facility] [address] [place] [address] 10/08/2023 10:03:44 10/29/2023 15:23:48 Pain of right knee joint 2360441661 74207 M25.609 [id number] Antoinette Antony, ROOF BOLTER [facility] [address] [place] [address] 03/10/2024 09:07:05 03/25/2024 08:05:51 [id number] Milton Shin PA-C [facility] [place] [address] [place] [address] 05/19/2024 12:47:32 06/02/2024 13:28:47 History of arthroscopy of knee joint 080694145 Z98.560 [id number] Bebo Mcrae MD [facility] [address] [place] [address] 05/28/2024 10:54:59 05/28/2024 12:42:50 Tear of medial meniscus of right knee joint 2357773598 7102 S83.241D [id number] Stephany Olivera, DPT [facility] [address] [place] [address] 06/02/2024 14:51:48 06/02/2024 16:15:57 Tear of medial meniscus of right knee joint 4870760986 7102 S83.241D [id number] Frank Bonner, PT [facility] [address] [place] [address] 06/04/2024 11:30:04 06/04/2024 12:50:38 Tear of medial meniscus of right knee joint 3825576240 7102 S83.241D [id number] Stephany Olivera, DPT [facility] [address] [place] [address] 06/09/2024 09:24:14 06/09/2024 11:37:29 Tear of medial meniscus of right knee joint 4685507764 7102 S83.241D [id number] Antoinettetony Pérezmilagro, ROOF BOLTER [facility] [address] [place] [address] 06/09/2024 08:53:31 06/09/2024 09:22:32 [id number] Stephany Olivera, DPT [facility] [address] [place] [address] 06/11/2024 11:37:12 06/11/2024 14:00:14 Tear of medial meniscus of right knee joint 6367374412 7102 S83.241D [id number] Stephany Olivera, DPT [facility] [address] [place] [address] 06/16/2024 16:25:14 06/16/2024 17:14:56 Tear of medial meniscus of right knee joint 8465034858 7102 S83.241D Health Concerns Section Related Observation LastModified by Organization Detai ls LastModified Time None Recorded Concern Status LastModified by Organization Details LastModified Time None Recorded Advance Directives Directive None Recorded Payers Encounter Date Sequence Insurance Name Policy Number Policy [place] Covered Member ID [place] Member ID Guarantor Name 06/04/2024 2 [employer] (MEDICARE SUPPLEMENT) Marlen Morales [id number] Marlen Morales 06/04/2024 1 [place] [employer] Marlen Morales [id number] Marlen Morales 06/09/2024 2 [employer] (MEDICARE SUPPLEMENT) Marlen Morales [id number] Marlen Morales 06/09/2024 1 [place] [employer] [employer] Marlen Morales [id number] Marlen Morales 06/09/2024 2 [employer] (MEDICARE SUPPLEMENT) Marlen Morales [id number] Marlen Morales 06/09/2024 1 [place] [employer] Marlen Morales [id number] Marlen Morales 06/11/2024 2 [employer] (MEDICARE SUPPLEMENT) Marlen Morales [id number] Marlen Morales 06/11/2024 1 [place] [employer] Marlen Morales [id number] Marlen Morales 06/16/2024 2 [employer] (MEDICARE SUPPLEMENT) Marlen Morales [id number] Marlen Morales 06/16/2024 1 [place] [employer] Marlen Morales [id number] Marlen Morales Notes Date Note Type Note Provider Name and Address Organization Details Recorded Time 06/04/2024 text/html Pt reports 2/10 px but mostly centralized in anterior patella. Good compliance with HEP. Jodie Long, DOCTOR OF AUDIOLOGY [address], [place], [address], [facility] 06/04/2024 12:35:49 06/09/2024 text/html Marlen is here today for follow-up. She had previous cortisone injection which gave fairly good relief she is here today for repeat cortisone injection in the left knee. She had recent right knee arthroscopy with Dr Mcrae and is happy with the results. Antoinette Antony, ROOF BOLTER [address], [place], [address], [facility] 06/09/2024 09:22:29 06/09/2024 text/html Pt reports tightness in back of leg. Saw Edith and is happy with progress thus far. Pt reports PT has been helping. Jodie Ethan, DOCTOR OF AUDIOLOGY [address], [place], [address], [facility] 06/09/2024 10:32:02 06/11/2024 text/html Pt reports feeli ng good today with minimal px and tightness in the back of her leg. Jodie Long, DOCTOR OF AUDIOLOGY [address], [place], [address], [facility] 06/11/2024 12:37:19 06/16/2024 text/html Patient reports that she has occasional stiffness and catching when getting up from a seated position, but feels she is getting better overall. Stephany Olivera, DPT [address], [place], [address], [facility] 06/17/2024 21:52:02 OBGyn Episode No OBEpisode recorded.
--- OUTSIDE RECORDS SUMMARY | 2024-06-23 15:59 | XMS_ITS | Clinical Summary ---
Author Organization [address] [place] [address] [place] [phone] Phone Care Team Providers Care Pipe Fitter Supervisor Name Role Phone Evette Oscar Primary Care Provider [phone] Allergies Active Allergy Reactions Criticality Noted Date Comments Other 07/25/2005 Sulfa Drugs-Other Reaction(s): Rash/Dermatitis Medications levothyroxine (SYNTHROID, LEVOTHROID) 137 mcg tablet Take 1 tablet (137 mcg total) by mouth 1 (one) time each day. Active omeprazole (PRILOSEC) 20 mg tablet,delayed release (DR/EC) Take 1 tablet (20 mg total) by mouth 1 (one) time each day. Active citalopram (CeleXA) 40 mg tablet Take 1 tablet (40 mg total) by mouth 1 (one) time each day. Active MULTIVITAMIN ORAL Take 1 Tablet by mouth daily. Active cholecalciferol (VITAMIN D-3) 50 mcg (2,000 unit) tablet Take 1 tablet (2,000 Units total) by mouth 1 (one) time each day. Active CALCIUM CARB-VIT D2-MINERALS ORAL Take 1 Tablet by mouth daily. Active dilTIAZem (CARDIZEM) 30 mg immediate release tablet TAKE 1 TABLET BY MOUTH DAILY NEEDED FOR OTHER (TACHYCARDIA ). 4 Active hydrOXYzine HCL (ATARAX) 25 mg tablet Take 1 Tablet by mouth at bedtime. Active hydroCHLOROthiazid e (HYDRODIURIL) 25 mg tablet Take 1 tablet (25 mg total) by mouth 1 (one) time each day. 2 Active LORazepam (ATIVAN) 0.5 mg tablet Take 1 tablet (0.5 mg total) by mouth 1 (one) time each day if needed. 1 Active latanoprost (XALATAN) 0.005 % ophthalmic solution Place 1 Drop into both eyes every morning. Active medical supply, miscellaneous (MISCELLANEOUS MEDICAL SUPPLY MISC) Inhale into the lungs. SMS-pressure 6-11 Active apixaban (ELIQUIS) 5 mg tablet Take 1 tablet (5 mg total) by mouth 2 (two) times a day. 180 tablet 1 4 08/19/19 25 Active dilTIAZem CD (CARDIZEM CD) 360 mg 24 hr capsule TAKE 1 CAPSULE BY MOUTH EVERY DAY 90 capsule 3 5 Active flecainide (TAMBOCOR) 50 mg tablet TAKE 1 TABLET BY MOUTH TWICE A DAY 180 tablet 1 5 Active tirzepatide, weight loss, (Zepbound) 2.5 mg/0.5 mL injection Inject 0.5 mL (2.5 mg total) under the skin every 7 (seven) days. Active Active Problems Problem Noted Date Diagnosed Date Pre-op evaluation 04/30/2024 Assessment & Plan (04/30/2024 2:53 PM EST): Patient is scheduled for laparoscopic knee surgery. #1. Patient has a 1% risk of a perioperative cardiac event based on her cardiovascular risk factors and the Rodgers perioperative assessment score 2. Patient's been told to stop her Eliquis on May 08 after her evening dose 3. Patient's been told to restart Eliquis on the morning of May 14. 4. The patient's been instructed to take her flecainide and diltiazem on the morning of the procedure to diminish her chances of developing perioperative A-fib The above note was prepared with the help of voice recognition software. Please excuse any grammatical or spelling errors that may have occurred Hypertension 10/10/2023 Overview (12/17/2023): Last Assessment & Plan: Patient has high blood pressure today she is under a great deal of stress because of the vertigo will have her back in 6 months and reassess her pressure at that time Assessment & Plan (06/16/2024 5:15 AM EDT): Orders: ECG 12 lead Vertigo 10/10/2023 Overview (12/17/2023): Last Assessment & Plan: Patient with vertigo similar symptoms in the past attributed to vertigo. Patient has meclizine available at home. I told with this and clear with meclizine and she may need vestibular therapy through physical therapy Atrial fibrillation ([facility] V24, [facility] V28) 0 08/23/2022 Overview (12/17/2023): Last Assessment & Plan: Patient with paroxysmal atrial fibrillation on rhythm management QTc correction is within normal limits. Rare breakthrough chronically anticoagulated with Pradaxa. No bleeding issues Assessment & Plan (04/30/2024 2:52 PM EST): Patient has paroxysmal atrial fibrillation. The frequency seems to be increasing in the duration increasing and breaking through her flecainide. The is not time for her to have a conversation with the EP service concerning ablation. The ablation does not need to be accomplished prior to her surgery we will set her up for an outpatient visit. She will continue present medical therapy with flecainide diltiazem and Eliquis Orders: ECG 12 lead Low vitamin D level 08/20/2020 Severe obesity (BMI 35.0-39. 9) with comorbidity (CMS/HCC V24, CMS/HCC V28) 08/16/2020 Elevation of levels of liver transaminase levels 06/01/2020 Overview (12/17/2023): Last Assessment & Plan: Ultrasound rule out fatty liver. If negative, consider discontinuing naproxen and alcohol to see if LFTs improve. She is not a heavy alcohol drinker but even small amounts of alcohol on a regular basis may cause mildly elevated transaminases. Oral lichen planus 05/27/2020 Overview (12/17/2023): [facility] - oral surgeon; biopsy-proven lichen planus affecting the gingiva with excellent response to topical steroids. 12/2019 - Continue dexamethasone 0.5 mg/5 ml solution. Swish with 5 ml (1 teaspoon) for 5 minutes and spit out three times a day. No food or drink for 20 minutes after. After one week, reduce to twice daily. If she remains asymptomatic after one week, she can reduce to once daily, then discontinue all together if she remains asymptomatic. If her symptoms flare, she should resume three times daily. Central sleep apnea 02/15/2016 Obstructive sleep apnea 01/28/2016 Overview (12/17/2023): 04/09/2016 to 07/07/2016. CPAP@ -11/Average 10.3/Max 10.3. 93% compliant with using the machine for >4 hours/day. Average use is 6.6 hours a night with AHI 5. 06/08/2016 to 07/07/2016. CPAP@ -11/Average 10.9/Max 10.9. 100% compliant with using the machine for >4 hours/day. Average use is 7.5 hours a night with AHI 4.5. Over the past month, sleeping a bit longer at night and AHI under better control. Atrial tachycardia (CMS/HCC V24) 09/20/2015 Overview (12/17/2023): [facility] 09/17/15 Last Assessment & Plan: Patient has history of atrial tachycardia in the past with question of atrial fibrillation with no documented evidence of PAF. 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 She denies any recurrent palpitations. No further testing required at this time. Trigger finger of left hand 01/08/2015 Overview (12/17/2023): S/p injection NEOS 01/2015 Prediabetes 12/12/2013 Overview (12/17/2023): HA1c of 5.7% Essential hypertension, benign 07/04/2012 Overview (12/17/2023): Last Assessment & Plan: Her blood pressure is under good control. She will continue on her current medications. I have encouraged her to work on diet and exercise. Hyperlipidemia 12/20/2011 Overview (12/17/2023): Last Assessment & Plan: Lipids are monitored by her primary care provider. She is presently not on any antihyperlipidemia medical therapy. I have reviewed with the patient the importance of a heart healthy lifestyle which includes eating a low-fat low-salt diet, getting regular exercise, maintaining a healthy weight, not smoking, and following up with routine medical care. Retinal vein occlusion ([facility] V28) 03/29/2009 GERD (gastroesophageal reflux disease) 8 Celiac disease 12/14/2005 Overview (12/17/2023): endoscopy and duodenal biopsy 12.12.05. Last Assessment & Plan: Check vitamin B12 and vitamin D levels with next labs. Anxiety and depression 07/25/2005 Overview (12/17/2023): Last Assessment & Plan: Increase citalopram back to 40 mg daily. May take lorazepam as needed for anxiety or insomnia. She denies panic attacks at this time. If she has ongoing anxiety despite increase in SSRI, requiring regular refills of lorazepam (more than 3 times a year), start medication use contract. She has no history of substance use disorder. Hypothyroidism 07/25/2005 Overview (12/17/2023): Last Assessment & Plan: She preferred to increase her levothyroxine instead of trying to take it separately (acknowledges she would probably forget several times a week). Increase to 125 mcg daily, recheck TSH in 8 to 12 weeks. If still elevated, would then recommend trying to take the levothyroxine 30 minutes prior to any other food/drink/meds. Encounters Date Type Department Care Team Description 06/18/2024 Telephone [facility] Cardiology [facility] [phone] [facility] [address] [place] [address] Elba Chino MD Procedure (PFA Afib Ablation 6.2.25) 06/03/2024 11:10 AM EDT Consult [facility] Cardiology [facility] [address] [place] [address] Elba Chino MD Hypertension, unspecified type (Primary Dx) 04/30/2024 1:30 PM EST Consult [facility] [address] [place] [address] Ricco Sim MD Atrial fibrillation, unspecified type (CMS/HCC V24, CMS/HCC V28) (Primary Dx); Pre-op evaluation 04/24/2024 Telephone [facility] [address] [place] [address] Ricco Sim MD Pre-op Visit from Last 3 Months Immunizations Name Administration Dates Next Due H1N1 Inj Preservative Free 02/22/2009 Influenza Quadravalent, MDCK , 0.5ml, preservative free (Flucelvax) 6mo and older 01/07/2018 Influenza trivalent, 0.5mL ( Fluad) 65yo and older 11/05/2019,12/11/2018 Influenza trivalent, 0.5mL, preservative free (Fluarix; FluLaval; Fluzone) ages 6mo and older (Afluria) 3 years and older 11/16/2016,12/02/2015,12/28/2009,02/22 Influenza, Unspecified 11/16/2016 Pneumococcal conjugate 13 va lent (Prevnar 13, PCV13) 2mo and older 11/11/2018 Pneumococcal polysaccharide 23 valent (Pneumovax 23) 2yo and older 08/16/2020 Td Tetanus diptheria (Tdvax) 7yo and older 12/09/2001 Tdap Tetanus diptheria acell ular pertussis (Boostrix; Adacel) 7yo and older 02/20/2012 Zoster Live 06/12/2016 Surgical History Surgery Date Site/Laterality Comments COLONOSCOPY 04/21/2002 PROCEDURE: [place] COLONOSCOPY FLX DX W/COLLJ SPEC WHEN PFRMD; COMMENT: negative COLONOSCOPY W/ BIOPSIES 07/17/2007 PROCEDURE: [place] COLONOSCOPY W/BIOPSY SINGLE/MULTIPLE; COMMENT: hyperplastic polyp CARPAL TUNNEL RELEASE PROCEDURE: HISTORICAL CARPAL TUNNEL REL OTHER SURGICAL HISTORY PROCEDURE: HISTORY OTHER; COMMENT: hand surg - trigger finger 3 releases COLONOSCOPY 2012 PROCEDURE: [place] COLONOSCOPY FLX DX W/COLLJ SPEC WHEN PFRMD; COMMENT: normal KNEE ARTHROSCOPY W/ MENISCAL REPAIR 04/08/2013 PROCEDURE: [place] ARTHROSCOPY KNEE W/MENISCUS RPR MEDIAL/LATERAL; COMMENT: right knee, NEOS BREAST REDUCTION 1994 Bilateral PROCEDURE: [place] BREAST REDUCTION; COMMENT: b/l breasts reduction Medical History Medical History Date Comments Unspecified hypothyroidism 07/25/2005 DX:Un specified hypothyroidism Adjustment disorder with dep ressed mood 07/25/2005 DX:Adjustment disorder with depressed mood Family history of malignant neoplasm of gastrointestinal tract 11/24/2005 DX:Family history of maligna nt neoplasm of gastrointestinal tract; COMMENT: Father diagnosed with colon cancer in his seventies. Paternal grandfather diagnosed with colon cancer approximately 35. Negative colonoscopy 04.21.02. Next colonoscopy indicated 2007. Celiac disease 12/14/2005 DX:Celiac diseas e; COMMENT: endoscopy and duodenal biopsy 12.12.05. Iron deficiency anemia secon malina to blood loss (chronic) 12/12/2005 DX:Iron deficiency anemia se condary to blood loss (chronic); COMMENT: Upper GI endoscopy and duodenal biopsies 12.12.05. Hepatitis 02/24/2009 DX:Hepatitis Essential hypertension, benign 07/04/2012 D X:Essential hypertension, benign Paroxysmal A-fib (CMS/HCC V2 4, CMS/HCC V28) 09/20/2015 DX:Paroxysmal A-fib (HCC); C OMMENT: [facility] 09/17/15 Family History Medical History Relation Name Comments Colon polyps Brother 1 dx age 48; #3 c [place] Colon cancer Father dx in 70's Colon cancer Paternal Grandfather dx age 35 Heart attack Neg Hx Prostate cancer Neg Hx Relation Name Status Comments Brother 1 Brother 2 Alive hypertension Daughter Alive Father asthma, colon c ancer, CVA Maternal Grandfather 45 yo breast surgery ?CA Mother CVA, hypertensi on Paternal Grandfather Sister Alive diabetes, hyper tension Son Alive Social History Tobacco Use Types Packs/Day Years Used Date Smoking Tobacco: Never Smokeless Tobacco: Never Alcohol Use Standard Drinks/Week Comments Not Currently 0 (1 standard drink = 0.6 oz pur e alcohol) Comments Unknown Sex and Gender Information Value Date Recorded Sex Assigned at Not on file Legal Sex Female 2:46 AM EST Gender Identity Not on file Sexual Orientation Not on file Obstetrics History Last Filed Vital Signs Vital Sign Reading Time Taken Comments Blood Pressure 128/82 06/03/2024 11:12 AM EDT Pulse 66 06/03/2024 11:12 AM EDT Temperature - - Respiratory Rate - - Oxygen Saturation 94% 06/03/2024 11:12 AM EDT Inhaled Oxygen Concentration - - Weight 96.2 kg (212 lb) 06/03/2024 11:12 AM EDT Height 154.9 cm (5' 1 ) 06/03/2024 11:12 AM EDT Body Mass Index 40.06 06/03/2024 11:12 AM EDT Plan of Treatment Upcoming Encounters Date Type Department Care Team (Late st Contact Info) Description 11/05/2024 8:50 AM EDT Office Visit [facility] Cardiology [facility] [address] [place] [address] Dr [address] [place] [address] Ricco Sim MD [address] [place] [address] [address] [place] [address] Health Maintenance Due Date Last Done Comments Colorectal Cancer Screening: Colonoscopy 02/11/2022 Depression Screening 02/11/2022 Falls Risk Assessment 02/11/2022 Medicare Annual Wellness Visit 02/11/2022 Social Influencers of Health Screening 02/11/2022 Breast Cancer Screening 08/05/2023 08/05/19, 07/30/2020, 08/27/2018, Additional history exists Hypertension/CHF/CAD Annual BMP Blood Test 08/30/2023 08/29/2022 COVID-19 Vaccine (7 - Pfizer risk season) 2024 11/21/2023, 12/04/2022, 12/12/2021, Additional history exists Cholesterol Screening (Lipid Panel) 05/31/2025 05/31/2020 Osteoporosis Screening (Bone Density Screening) 05/26/2031 05/25/2021, 01/10/2019 DTaP,Tdap,and Td Vaccines (4 - Td or Tdap) 05/15/2032 05/15/2022, 02/20/2012, 12/09/2001 Hepatitis C Screening Completed 02/04/2018 Pneumococcal Vaccine: 50+ Years Completed 08/16/2020, 11/11/2018, 09/18/2015 RSV Immunization Adult Patients Completed 01/31/2023 Influenza Vaccine Completed 11/21/2023, , 12/12/2021, Additional history exists Zoster Vaccines Completed 01/09/2024, 0811/2023, 06/12/2016 HIB Vaccines Aged Out No longer eligi ble based on patient's age to complete this topic HPV Vaccines Aged Out No longer eligi ble based on patient's age to complete this topic Hepatitis A Vaccines Aged Out No long er eligible based on patient's age to complete this topic Hepatitis B Vaccines Aged Out No long er eligible based on patient's age to complete this topic IPV Vaccines Aged Out No longer eligi ble based on patient's age to complete this topic MMR Vaccines Aged Out No longer eligi ble based on patient's age to complete this topic Meningococcal ACWY Vaccine Aged Out N o longer eligible based on patient's age to complete this topic Meningococcal B Vaccine Aged Out No l onger eligible based on patient's age to complete this topic RSV Immunization Patients Under 20 months Aged Out No longer eligible based on patient's age to complete this topic Varicella Vaccines Aged Out No longer eligible based on patient's age to complete this topic Procedures Procedure Name Priority Date/Time Associated Diagnosis Comments ECG 12-LEAD Routine 06/03/2024 11:19 AM EDT Hypertension, unspecified type ECG 12-LEAD Routine 04/30/2024 1:51 PM EST Atrial fibrillation, unspecified type (CMS/HCC V24, CMS/HCC V28) HM ANNUAL BMP BLOOD TEST Routine 08/29/2022 SCREENING MAMMOGRAPHY BI 2-VIEW BREAST INC CAD Routine 08/04/2021 7:56 AM EDT Encounter for screening mammogram for malignant neoplasm of breast DXA BONE DENSITY STUDY 1+ SITS AXIAL SKEL Routine 05/25/2021 9:38 AM EDT Encounter for screening for osteoporosis LIPID PANEL Routine 05/31/2020 HEPATITIS C SCREENING Routine 02/04/2018 from Last 3 Months or Most Recently Relevant to Health Maintenance Results * ECG 12 lead (06/03/2024 11:19 AM EDT) Only the most recent of2 resultswithin the time period is included. Ventricular Rate ECG 67 BPM GEMUSE Atrial Rate 67 BPM GEMUSE P-R Interval 190 ms GEMUSE QRS Duration 80 ms GEMUSE Q-T Interval 422 ms GEMUSE QTc 445 ms GEMUSE P Wave Poplar 1 degrees GEMUSE R Poplar 13 degrees GEMUSE T Poplar 18 degrees GEMUSE ECG Interpretation Normal sinus rhythm Nonspecific T wave abnormality When compared with ECG of 30-APR-2024 13:51, No significant change was found Confirmed by VIRAL CHINO ([id number]) on 06/03/2024 4:07:23 PM GEMUSE 06/03/2024 11:1 9 AM EDT 06/03/2024 4:07 PM EDT Elba Chino MD ECG ORDERABLES Final Resu lt GEMUSE * Annual BMP Blood Test (08/29/2022) Pathologist [facility] Annual BMP Blood Test abstracted Historical Provider HEALTH MAINTENANCE Final Result * SCREENING MAMMOGRAPHY BI 2-VIEW BREAST INC CAD (08/04/2021 7:56 AM EDT) Anatomical Region Laterality Modality Radiographic Laisha ging 07/30/2020 7:38 AM EDT Narrative 08/04/2021 11:50 AM EDT This is a summary report. The complete report is available in the patient's medical record. If you cannot access the medical record, please contact the sending organization for a detailed fax or copy. Full field digital screening 2D and 3D mammography, reviewed with CAD and compared to previous mammograms dating back to 08/22/2017 with most recent of 07/30/2020. ??The breasts are composed of fatty and fibroglandular tissue. ??No suspicious mass, architectural distortion or suspicious calcifications are identified. IMPRESSION: : No mammographic evidence of malignancy. BIRADS 1-Negative; N. 5 year breast cancer risk assessment 1.5 % Lifetime breast cancer risk assessment 5.2 % Breast cancer risk category Low (<15%) Procedure Note Obdulia Knet MD - 02/21/2022 This is a summary report. The complete report is available in thepatient's medical record. If you cannot access the medical record, pleasecontact the sending organization for a detailed fax or copy. Full field digital screening 2D and 3D mammography, reviewed with CAD andcompared to previous mammograms dating back to 08/22/2017 with most recentof 07/30/2020. The breasts are composed of fatty and fibroglandulartissue. No suspicious mass, architectural distortion or suspiciouscalcifications are identified. IMPRESSION: : No mammographic evidence of malignancy. BIRADS 1-Negative; N. 5 year breast cancer risk assessment 1.5 % Lifetime breast cancer risk assessment 5.2 % Breast cancer risk category Low (<15%) Evette BONILLA IMG XR PROCEDURES Final Result * DXA BONE DENSITY STUDY 1+ SITS AXIAL SKEL (05/25/2021 9:38 AM EDT) Anatomical Region Laterality Modality Bone Densitometr y 03/22/2021 12:1 2 PM EST Narrative 05/25/2021 12:04 PM EDT Clinical history: osteoporosis Scans of the lumbar spine and hips were performed on a [employer] fan beam bone densitometer. ? Bone mineral density measurements and associated T and Z scores respectively are as follows: Lumbar Spine: L1-L4 BMD: 0.838 g/cm2 ? T-Score: -1.9 ? Z-Score: 0 Compared with the prior study dated 01/10/2019, the BMD reading has decreased which is not statistically significant Left Proximal Femur: Neck BMD: 0.6 g/cm2 ? T-Score: -2.2 ?? Z-Score: -0.6 Total BMD: 0.880 g/cm2 ? T-Score: -0.5 ?Z-Score: 0.9 Compared with the prior study the mean BMD reading in the total left hip has increased which is not statistically significant Compared with standards for the young adult, lowest measured bone density places the patient in the W.HO. osteopenic range. FRAX 10 year probability of major osteoporotic fracture: 28% FRAX 10 year probability of hip fracture: 4.5% Population: [place] () IMPRESSION: IMPRESSION: Osteopenia. The NOF guidelines recommend that FDA approved medical therapies be considered in postmenopausal women and men age >50 years with a: i. Hip or vertebral (clinical or morphometric) fracture ii. T score of < -2.5 at the spine or hip iii. 10 year fracture probability by FRAX of >3% for hip fracture, or >20% for major osteoporotic fracture PLEASE NOTE: ?? W.H.O. classification is based on lowest measured density at the spine, femoral neck, or total hip.This classification has prognostic significance when applied to post menopausal women and older men. 1) ??The World Health Organization defines low BMD as follows: ?T-score ? Normal ? at or > -1 Osteopenia ? < -1 and ??> - 2.5 Osteoporosis ? at or < -2.5 without fractures Established osteoporosis ? < -2.5 with fractures Procedure Note Katya Kolb MD - 02/21/2022 Clinical history: osteoporosis Scans of the lumbar spine and hips were performed on a [employer] beam bone densitometer. Bone mineral density measurements and associated T and Z scoresrespectively are as follows: Lumbar Spine: L1-L4 BMD: 0.838 g/cm2 T-Score: -1.9 Z-Score: 0 Compared with the prior study dated 01/10/2019, the BMD reading hasdecreased which is not statistically significant Left Proximal Femur: Neck BMD: 0.6 g/cm2 T-Score: -2.2 Z-Score: -0.6 Total BMD: 0.880 g/cm2 T-Score: -0.5 Z-Score: 0.9 Compared with the prior study the mean BMD reading in the total left hiphas increased which is not statistically significant Compared with standards for the young adult, lowest measured bone densityplaces the patient in the W.HO. osteopenic range. FRAX 10 year probability of major osteoporotic fracture: 28% FRAX 10 year probability of hip fracture: 4.5% Population: [place] () IMPRESSION: IMPRESSION: Osteopenia. The NOF guidelines recommend that FDA approved medical therapies beconsidered in postmenopausal women and men age >50 years with a: i. Hip or vertebral (clinical or morphometric) fracture ii. T score of < -2.5 at the spine or hip iii. 10 year fracture probability by FRAX of >3% for hip fracture, or >20%for major osteoporotic fracture PLEASE NOTE: W.H.O. classification is based on lowest measured density at the spine,femoral neck, or total hip.This classification has prognostic significance when applied to postmenopausal women and older men. 1) The World Health Organization defines low BMD as follows: T-score Normal at or > -1 Osteopenia < -1 and > -2.5 Osteoporosis at or < -2.5 withoutfractures Established osteoporosis < -2.5 with fractures us Dilia Scales MD [facility] [place]XA PROCEDURES Final Res ult * (ABNORMAL) Lipid panel (05/31/2020) LDL/HDL Ratio 4 0 - 4 Triglycerides 160(A) 0 - 150 mg/dL Cholesterol 219(A) 0 - 200 mg/dL HDL 58 >=40 mg/dL LDL Cholesterol 129(A) 0 - 100 mg/dL Blood Venous blood specimen / Unknown Historical Provider LAB BLOOD ORDERABLES Beatriz l Result * Hepatitis C Screening (02/04/2018) Hepatitis C Screening abstracted Historical Provider HEALTH MAINTENANCE Final Result from Last 3 Months or Most Recently Relevant to Health Maintenance Insurance MEDICARE HUMAN Care Teams Pipe Fitter Supervisor Relationship Specialty Start Date End Date Evette Oscar PA [address] [place] [phone] PCP - General 06/03/24
[2024-06-23 16:00] VITALS: BP 110/70; PULSE 69; TEMP 36.9; O2SAT 97
== END 2024-06-23 16:26 | disposition home or self-care (01) ==
PROVIDERS: PCP Physician Assistant; Visit Provider Nurse Practitioner Family
DX: L03.012 Cellulitis of left finger (principal)

== ENCOUNTER → 2024-06-23 15:56 | Outpatient (BNVA) | payer MEDICARE, OTHER, SELFPAY | PROVIDERS: PCP Physician Assistant; Visit Provider Nurse Practitioner Family | DX: L03.012 Cellulitis of left finger (principal) | CPT/HCPCS: 99212 ==